=== PATIENT | female | born 1970 | race Caucasian/White ===

== ENCOUNTER → 2023-08-08 16:00 | Outpatient (REF) | payer OTHER, SELFPAY | LOC: HWRAD 16:00 | PROVIDERS: ATTENDING PHYSICIAN Nurse Practitioner | DX: M25.562 Pain in left knee (principal) | CPT/HCPCS: 73564 ==

== ENCOUNTER → 2023-08-17 16:23 | Outpatient (REF) | payer OTHER, SELFPAY | LOC: HWWDC 16:23 | PROVIDERS: ATTENDING PHYSICIAN Nurse Practitioner | DX: Z12.31 Encounter for screening mammogram for malignant neoplasm of breast (principal) | CPT/HCPCS: 77063; 77067 ==

== ENCOUNTER → 2023-11-30 15:06 | Outpatient (REF) | payer OTHER, SELFPAY | LOC: HWRAD 15:06 | PROVIDERS: ATTENDING PHYSICIAN Nurse Practitioner Family | DX: M25.551 Pain in right hip (principal) | CPT/HCPCS: 72110; 73502 ==

== ENCOUNTER → 2024-01-29 15:49 | Outpatient (REF) | payer OTHER, SELFPAY | LOC: PAVMRI 15:49 | PROVIDERS: ATTENDING PHYSICIAN Physical Medicine & Rehabilitation; FAMILY PHYSICIAN Nurse Practitioner | DX: M54.16 Radiculopathy, lumbar region (principal); M54.17 Radiculopathy, lumbosacral region; M96.1 Postlaminectomy syndrome, not elsewhere classified | CPT/HCPCS: 72148 ==

== ENCOUNTER → 2024-04-09 15:35 | Outpatient (REF) | payer OTHER, SELFPAY | LOC: HWRAD 15:35 | DX: M54.2 Cervicalgia (principal) | CPT/HCPCS: 72052 ==

== ENCOUNTER → 2024-05-14 08:17 | Outpatient (REF) | payer OTHER, SELFPAY | LOC: HWRAD 08:17 | PROVIDERS: ATTENDING PHYSICIAN Orthopaedic Surgery | DX: M96.1 Postlaminectomy syndrome, not elsewhere classified (principal) | CPT/HCPCS: 72131 ==

== ENCOUNTER → 2024-08-07 11:34 | Outpatient (REF) | payer OTHER, SELFPAY | LOC: RAD 11:34 | PROVIDERS: ATTENDING PHYSICIAN Physician Assistant Medical | DX: M43.25 Fusion of spine, thoracolumbar region (principal); M40.30 Flatback syndrome, site unspecified | CPT/HCPCS: 72082; 72114; 72128 ==

== ENCOUNTER → 2024-08-18 13:26 | Outpatient (REF) | payer OTHER, SELFPAY | LOC: PAVMRI 13:26 | PROVIDERS: ATTENDING PHYSICIAN Physician Assistant Medical | DX: M43.25 Fusion of spine, thoracolumbar region (principal); M40.30 Flatback syndrome, site unspecified | CPT/HCPCS: 72146; 72148 ==